=== PATIENT | female | born 1985 | race Caucasian/White ===

== ENCOUNTER 2016-05-17 02:11 | Emergency (ER) | payer OTHER ==
[~2016-05-17] VITALS: Ht 157.5 cm; Wt 55.5 kg
[2016-05-17 02:16] VITALS: BP 157/90; PULSE 121; RESP 16; O2SAT 98
--- NOTE | 2016-05-17 02:37 | ED.REPORT ---
HPI-General Illness Date of Service May 17, 2016 ED Provider: Collins Blevins MD 30 year old female presents to the ER accompanied by her boyfriend complaining of two days of sore throat. Associated symptoms include generalized myalgias, flushed chest, and decreased appetite. Patient denies fever, nausea, vomiting, and history of mono. Nursing Notes Stated Complaint: SORE THROAT/ FEVER Chief Complaint: FLU/Cold Symptoms Nursing Notes Reviewed: Yes Allergies: Coded Allergies: No Known Allergies (Unverified , 05/17/16) Scheduled Penicillin V Potassium (Penicillin V Potassium) 500 Mg Tablet 500 MG PO QID General Time Seen by MD: 02:36 Chief Complaint Sore throat Hx Obtained From: Patient Arrived By: Walk-in Sudden in Onset?: No Onset Occurred: 2 days ago Symptom Duration: Since onset Associated with: Denies: Fever, Nausea, Vomiting Additional Notes: Generalized myalgias Pertinent Negative: Pt denies other symptoms Similar Sx Previous: No Past Medical History Past Medical History Healthy Smoking History Unknown if Ever Smoker Social History Other Social History: Good social support Ambulatory Status Independent Review of Systems Full Review of Systems Constitutional: Denies: Chills, Fever Ears / Nose / Throat: Reports: Sore throat, Throat pain Respiratory: Denies: Non-productive cough, Shortness of breath GI: Denies: Abdominal pain, Diarrhea, Nausea, Vomiting Musculoskeletal: Reports: Myalgia (Generalized) Skin: Reports Rash Complete sys rev & neg: except as marked. Physical Exam Vital Signs Vital Signs Date Time Temp Pulse Resp B/P Pulse Ox O2 Delivery O2 Flow Rate FiO2 05/17/16 03:50 38.7 109 18 97 Room Air 05/17/16 02:16 38.8 121 16 157/90 98 Room Air Initial VS: Reviewed General/Constitutional: Well-developed, Well-nourished Head / Eyes: Atraumatic, Normocephalic Abdomen / GI: Soft, Non-tender, No guarding, No rebound, No distention Extremities: Vascular intact, Neuro intact, No swelling, No tenderness Neurologic: Alert, Oriented, Nonfocal Psychiatric: Mood/affect normal, Behavior normal, Normal thought content ENT: Airway patent, Mucous membranes moist Pharynx / Tonsils / Uvula: Positive: Pharyngeal erythema, Tonsillar erythema L , Tonsillar erythema R, Tonsillar exudate L (purulent), Tonsillar exudate R ( purulent), Tonsillar swelling L, Tonsillar swelling R Neck: Full range of motion, No midline vertebral tend Soft Tissue Neck: Positive: Cervical adenopathy L... (Anterior), Cervical adenopathy R... (Anterior) Respiratory / Chest: Breath sounds NL, No respiratory distress, No rales, No rhonchi, No wheezing Cardiovascular: Heart rate NL, Regular rhythm, Heart sounds NL, Cap refill not delayed, Peripheral circulation NL Skin: Warm, Dry, Intact Color / Condition: Positive: Rash present Rash / Lesion Notes: Hazy flushed strep rash. Re-Eval/Medical Decision Med Decision/Clinical Course 22-year-old fairly unequivocal strep throat despite negative rapid strep. Home on penicillin VK, single dose Decadron, and routine supportive measures. Follow up with PCP. Time of Eval: 02:40 Re-Evaluation/Progress Note: Discussed physical examination findings and plan to discharge. Patient is amenable to the plan. Return precautions given. All other questions addressed. Counseled Regarding: Diagnosis, Lab results, Need for follow-up, When/why to return to ED Discharge & Departure Primary Impression: Strep throat Disposition: Home Discharge Condition All VS Reviewed: Yes Condition: Stable Patient Instructions: Strep Throat (DC) Additional Instructions: Penicillin four times daily for ten days. Ibuprofen suspension or tablets four times daily for pain Drink plenty of fluids and stay hydrated Follow up with your doctor in the office Return if any immediate issues. Referrals: Raj Schrader MD (Family) Scribe Attestation Portions of this note were transcribed by Sang Guevara. I, Dr. Blevins, personally performed the history, physical exam and medical decision-making; I reviewed and confirmed the accuracy of the information in the transcribed note. Signed by: Martha Vickers. 05/17/2016 - 03:03 copies to: Raj Schrader MD, Christopher W MD May 17, 2016 02:37 SANG GUEVARA May 17, 2016 02:44
[2016-05-17] MEDS ORDERED: Ibuprofen Suspension 20 mg/mL 5 mL Suspension PO ONE (02:45)
[2016-05-17] MEDS ORDERED: Dexamethasone 20 mg/2 mL Oral Solution PO ONE (02:45)
[2016-05-17] MEDS ORDERED: PENI500T PO (03:01)
[2016-05-17 03:50] VITALS: PULSE 109; RESP 18; O2SAT 97
== END 2016-05-17 03:49 | disposition home or self-care (01) ==
LOC: SED 02:11
DX: J02.0 Streptococcal pharyngitis (principal)